=== PATIENT | female | born 1970 | race Caucasian/White ===

== ENCOUNTER 2021-06-22 15:40 | Emergency (ER) | payer OTHER, SELFPAY ==
[2021-06-22] VITALS (27 sets, daily range): BP systolic 112–130; BP diastolic 50–71; PULSE 58–79; RESP 13–26; TEMP 36.7; O2SAT 96–100
--- NOTE | 2021-06-22 15:45 | RT.EKG_ITS ---
APPROVED REPORT Exam: Resting ECG Reason for Exam: stomach pain, burning to chest Patient Location: E HR:61 bpm ECG Measurements Heart Rate 61 AXIS NM 129 P 46 QRSd 94 QRS 38 QT 449 T 53 QTc 452 Conclusion Sinus rhythm...normal P axis, V-rate 60- 99
--- NOTE | 2021-06-22 16:21 | W.ED.GENAD ---
Discharge Plan Disposition Patient Disposition: HOME Condition: Stable Discharge Details Clinical Impression: Abdominal pain, Midepigastric pain Primary Care Provider: Glenna,Local ED Provider: Ayde Chavez Home Meds and New Rx's Prescriptions: Continued citalopram 40 mg Tablet 40 mg PO DAILY RF: 0 levothyroxine 125 mcg Tablet 125 mcg PO DAILY RF: 0 Discharge Instructions Instructions: Abdominal Pain (ED) Additional Instructions: CT shoes mild thickening of the appendix, the general surgeon metal sprayer production was able to personally view the images and does not think there is any evidence for acute appendicitis at this time. Over the next 2 to 3 days clear liquids advance with bland diet as tolerated. Nothing fried, fatty, spicy, stay away from dairy. Please return to the emergency room for any worsening or increasing abdominal pain, fever, vomiting or any concerns. Please discussed the CT results with your primary care provider. Follow up with primary care provider in 3-5 days. Return to ED sooner if any worsening or concerns. Increase oral fluids. Consider taking Carafate or similar which she can obtain [id number] or taking Maalox. Medical Decision Making 50-year-old female with a past medical history of bilateral mastectomy, breast Ca, oophorectomy, cholecystectomy presents to the ER with chief complaint of midepigastric abdominal pain which radiates up into the chest, nausea which began at 3:00 this morning. She denies any vomiting or diarrhea. She reports last bowel movement was 2 days ago. Denies any hematochezia or hematemesis. Just recently drove up here from [place] on Wednesday. She has no pain on initial exam. She reports intermittent episodes. She took 2 Pepto-Bismol tabs prior to arrival. EKG was reviewed by Dr. José Vaca MD ER attending, please see his official report review, no old EKG available. Normal sinus rhythm. This time cardiac work-up ordered including serial troponins, CT chest abdomen pelvis. Rule out PE. Differential diagnosis includes but not limited to coronary artery disease, PE, GERD CBC shows no evidence for leukocytosis, absolute neutrophils slightly elevated at 7.15, CMP largely within normal limits initial troponin within normal limits lipase 108 which is normal, TSH slightly low free T4 within normal limits. 1743: Patient reevaluation. She denies have any other episode since being here, discussed lab results and pending CT result. Patient verbalized understanding. 1812: Spoke with [facility] radiologist who reports soft call of slightly thickened appendix at 8mm. 1821: Patient reevaluation, she is slightly tender in the right lower quadrant with palpation. She reports that she is having some return of the abdominal pain intermittently but nothing like the earlier severity of the attacks that brought her in today. On-call surgeon paged to have her look at the CT and give recommendations. I did discuss the preliminary CT results with patient and family who verbalized understanding. 1827: Spoke with Dr. Shannon who was able to personally view the images she did not appreciate any signs of sinusitis she reports that she is able to clearly see the appendix and it does not appear to be acute appendicitis. At this time I do feel it is safe for patient be discharged home. I will discuss strict return instructions, incidental findings including lung nodule with her and give her a copy of the CT results. Patient verbalized understanding all her questions were answered to the best my abilities. Insert dragon patient reports that she is set to go back to [place] tomorrow. HPI General Mode of arrival: ambulatory. Date/Time Provider Initiated Documentation: 06/22/21 16:07. Limitations to Documentation: no limitations. Information obtained by: patient, family and RN notes reviewed. HPI Narrative: 50-year-old female with a past medical history of bilateral mastectomy, breast Ca, oophorectomy, cholecystectomy presents to the ER with chief complaint of midepigastric abdominal pain which radiates up into the chest, nausea which began at 3:00 this morning. She denies any vomiting or diarrhea. She reports last bowel movement was 2 days ago. Denies any hematochezia or hematemesis. Just recently drove up here from [place] on Wednesday. She has no pain on initial exam. She reports intermittent episodes. She took 2 Pepto-Bismol tabs prior to arrival. Related Data Home Medications Medication Instructions Recorded Confirmed citalopram 40 mg PO DAILY 06/22/21 06/22/21 levothyroxine 125 mcg PO DAILY 06/22/21 06/22/21 Allergies Allergy/AdvReac Type Severity Reaction Status Date / Time cefazolin [From [facility]] Allergy Severe Anaphylaxis Unverified 06/22/21 16:02 General Stated Complaint: Chest Pain YANIRA: 2 Review of Systems All systems reviewed & are unremarkable except as noted in HPI and below Gastrointestinal Gastrointestinal: Reports abdominal pain, Denies hematochezia, Reports constipation, Reports cramping, Reports heartburn, Denies diarrhea, Reports nausea and Denies vomiting PFSH Social History Smoking/Tobacco Use Status: Never Smoking risk assessment performed?: Yes Substance use type: does not use Female Reproductive History Menstrual Menopause type: natural Exam Narrative Exam Narrative: Constitutional: Alert and oriented x3. Appears stated age. Normal body habitus. Head: Normocephalic, no trauma. Eyes: Pupils PERRLA, Red reflex noted, EOM's intact. Eyelids symmetrical without lesions, discharge, or swelling. ENT: Bilateral TM's WNL, External ear normal to inspection, no mastoid TTP, swelling, or erythema, Nasal turbinates WNL, no nasal discharge. Normal dentition, Posterior pharynx WNL, no exudate. Chest: RRR, Normal S1, S2, distal pulses intact. No pitting edema noted lower extremities. Resp: Lungs clear to auscultation bilaterally, no wheezes, rales, or rhonchi. Abdomen: Soft, nondistended nontender to palpation all 4 quadrants. Musculoskeletal: Normal gait, 5/5 strength to all four extremities. Skin: No suspicious rashes or lesions. Capillary refill less than 2 sec. Neurologic: Cranial nerves II-XII intact. Alert and oriented x 3. Hematologic/Lymphatic: No ecchymosis, no lymphadenopathy. Course Vital Signs Vital signs: Vital Signs Temperature 36.7 C 06/22/21 15:56 Pulse 70 06/22/21 15:56 Respiratory Rate 21 06/22/21 15:56 Blood Pressure 130/50 L 06/22/21 15:56 Pulse Oximetry 99 06/22/21 15:56 Temperature 36.7 C 06/22/21 15:56 Temperature Source Skin 06/22/21 15:56 Pulse 70 06/22/21 15:56 Respiratory Rate 19 06/22/21 16:12 Respiratory Effort 06/22/21 16:12 Respiratory Depth Normal 06/22/21 16:12 Respiratory Pattern Normal 06/22/21 16:12 Blood Pressure 130/50 L 06/22/21 15:56 Blood Pressure Position Supine 06/22/21 15:56 Pulse Oximetry 99 06/22/21 15:56 Oxygen Delivery Method Room Air 10/17/21 15:56 Oxygen Flow Rate 0 06/22/21 15:56 Pain Level 0 06/22/21 16:12 PAWSS Have you Been Recently Intoxicated or Drunk Within the Last 30 days?: No Have you Ever Experienced Previous Episodes of Alcohol Withdrawal?: No Have you ever Experienced Withdrawal Seizures?: No Have you ever Experienced Delirium Tremens(DT)s?: No Have you ever undergone Alcohol Rehabilitation Treatment (i.e, inpt ot outpatient treatment programs)?: No Have you ever Experienced Blackouts?: No Have you ever Combined Alcohol with other Downers within the last 90 days?: No Have you ever Combined Alcohol with any other Substance of Abuse during the last 90 days?: No Positive Blood Alcohol level on Presentation? [PCS.BAL]: No Evidence of Increased Autonomic Activity (i.e. HR>120, tremor, sweating, agitation, nausea)?: No Result: 0
--- NOTE | 2021-06-22 16:25 | DI.CT_ITS ---
Exam(s) CT CHEST PE ABD PELVIS W EXAM: CT CHEST PE ABD PELVIS W CLINICAL HISTORY: Chest Pain, R/O PE, Hx Breast CA,. TECHNIQUE: Imaging Protocol: Axial CT angiography was performed with multi-slice acquisition and m ulti-planar and/or 3D reconstructions. CONTRAST MATERIAL: Intravenous: Omnipaque 350 Contrast volume:100 ml Oral: None COMPARISON: No exams were available for comparison FINDINGS: CHEST: PULMONARY ARTERIES: There are no intra-arterial filling defects to suggest the presence of acute pulm onary emboli. LUNGS: There is no evidence of pulmonary infarction.There is a solitary noncalcified 4 millimeter sub pleural noncalcified nodule in the lateral basal segment of the left lower lobe (series 4, image 30). No other nodule seen. There are no pleural effusions. MEDIASTINUM: There is no hilar nor mediastinal adenopathy. Visualized thyroid unremarkable. CARDIAC: Heart size is normal. There is no pericardial effusion. There is no significant shift of t he interventricular septum.Caliber of the thoracic aorta is within normal limits. OSSEOUS: There is partially included sclerotic bone lesion evident in the upper left humerus.No lytic bone lesions. No fractures.. ABDOMEN: There is no ascites. LIVER: There are no focal hepatic lesions nor dilatation of intrahepatic ducts. GALLBLADDER/BILIARY: The gallbladder is surgically absent. CBD is not dilated. PANCREAS: No evidence of pancreatic mass nor dilatation of the pancreatic duct. SPLEEN: Spleen size upper normal. There is capsular calcification noted in the medial aspect of the spleen. No ominous splenic lesions. Splenic and portal veins are patent. ADRENALS: There are no significant adrenal masses. KIDNEYS:There is a 5 millimeters cyst in the lateral cortex of the right kidney. No calculi nor hydr onephrosis. Another cyst small-6 millimeter benign cyst is noted in the right kidney 2 cm above the other cysts. There are no solid renal masses. Left kidney dromedary hump noted. ABDOMINAL AORTA: Abdominal aorta is intact. No aneurysm. No dissection. Aortic bifurcation is varghese nt. No stenosis at this level nor in the common and external iliac arteries. Both common femoral ar teries are patent. LYMPH NODES: There is no retroperitoneal or para-aortic adenopathy. ABDOMINAL WALL/GI: Anterior abdominal wall hernia mesh noted. No hernia at this time. No abnormal f luid collection. No bowel obstruction. PELVIS: LYMPH NODES: There is no intrapelvic nor inguinal adenopathy. GI: Appendix diameter is minimally prominent. There is no periappendiceal streaking. No calcified a ppendicolith seen. No evidence of sigmoid diverticulitis. URINARY BLADDER: No calculi nor masses evident REPRODUCTIVE: The uterus and adnexal regions appear unremarkable. OSSEOUS: No significant osseous lesions. Sacroiliac joints appear unremarkable. IMPRESSION: 1. No evidence of acute pulmonary emboli nor pulmonary infarction. Thoracic and abdominal aorta appe ar unremarkable. No dissection. Aortoiliac segments are patent. Also no aneurysmal dilatation at t hese levels. 2. No significant focal pulmonary findings and no pleural effusions. There is no intrathoracic adeno elda. 3. The gallbladder surgically absent. The biliary tree is not dilated. 4. Appendix diameter is minimally prominent measuring 7-8 millimeters. There is no periappendiceal s treaking. There is no calcified appendicolith. Correlation the clinical findings of appendicitis re commended. 5. There is a partially visualized sclerotic bone lesion in the proximal diaphysis of the left humeru s. Suggestive of a cartilaginous lesion. Recommend plain x-rays as the next step. This study 1st read by [facility]. RADIATION DOSE DELIVERED: 1,500.87mGy.cm Total DLP DATA REPOSITORY: All CT scans at this facility are submitted to the National Radiology Data Registry (NRDR) Dose Index Registry (DIR) with the [employer] (ACR). RADIATION OPTIMIZATION: All CT scans at this facility use at least one of these dose optimization te chniques: automated exposure control; mA and/or kV adjustment per patient size (includes targeted exa ms where dose is matched to clinical indication); or iterative reconstruction.
[2021-06-22 16:33] LABS: Abs Immature Grans 0.03 10^3/uL (0.0-0.06); Absolute Basophil Count 0.01 10^3/uL (0.0-0.2); Absolute Eosinophil Count 0.15 10^3/uL (0.0-0.7); Absolute Lymphocyte Count 1.01 10^3/uL (1.2-3.4); Absolute Monocyte Count 0.54 10^3/uL (0.1-0.8); Absolute Neutrophil Count 7.15 10^3/uL (1.2-6.7); Basophils % 0.1; Eosinophils % 1.7; HCT 43.6 % (36.0-46.0); HGB 14.2 g/dL (11.2-15.7); Immature Grans % 0.3; Lymphocytes % 11.4; MCH 29.6 pg (27.0-33.0); MCHC 32.6 % (32.0-36.0); MPV 10.8 fL (8.0-11.0); Monocytes % 6.1; Neutrophils % 80.4; Nucleated RBC 0 %; Platelet Count 248 10^3/uL (130-400); RBC 4.79 10^6/uL (3.93-5.22); RDW 12.8 % (11.7-14.6); RDW-SD 42.5 fL; WBC 8.89 10^3/uL (4.4-10.8)
[2021-06-22] MEDS: Aspirin 81 MG CHEW 324 MG CH (16:46)
[2021-06-22 16:51] LABS: ALT 38 U/L (14-59); AST 35 U/L (15-37); Alkaline Phosphatase 107 U/L (46-116); Anion Gap 7.9 mmol/L (3-11); BUN 17 mg/dL (7-18); Bilirubin, Total 0.8 mg/dL (0.2-1.0); CO2 30.1 mmol/L (21.0-32.0); CREATININE 0.9 mg/dL (0.55-1.02); Calcium 8.6 mg/dL (8.5-10.1); Chloride 105 mmol/L (98-107); Glucose 95 mg/dL (74-106); Magnesium 1.9 mg/dL (1.8-2.4); Potassium 3.8 mmol/L (3.5-5.1); Sodium 143 mmol/L (136-145); TSH (W/Ref FT4) 0.08 uIU/mL (0.36-3.74); Total Protein 7.3 g/dL (6.4-8.2)
[2021-06-22 17:01] LABS: Troponin I < 0.05 ng/mL (<0.06)
[2021-06-22 17:10] LABS: Lipase 108 U/L (73-393)
[2021-06-22] MEDS: Normal Saline Flush 10 ML SYR IVP (17:21)
[2021-06-22] MEDS: Omnipaque 350 MG/ML 100 ML BTL IJ (17:21)
[2021-06-22] MEDS: Normal Saline - Diluent 50 ML VIAL IV (17:21)
[2021-06-22] MEDS: Normal Saline 1,000 ML 250 ML IV (18:01)
--- NOTE | 2021-06-22 18:14 | DI.VRAD_ITS ---
PROCEDURE INFORMATION: Exam: CTA Chest With Contrast Exam date and time: 06/22/2021 5:06 PM Age: 50 years old Clinical indication: Other: Chest pain, R/O pe, HX breast CA, ; other: Abd cramping, nausea; Prior surgery; Surgery date: 6+ months; Surgery type: Double masectomy TECHNIQUE: Imaging protocol: Computed tomographic angiography of the chest with contrast. 3D rendering (Not supervised by radiologist): MIP and/or 3D reconstructed images were created by the technologist. Contrast material: OMNIPAQUE 350; Contrast volume: 100 ml; Contrast route: INTRAVENOUS (IV); COMPARISON: No relevant prior studies available. FINDINGS: Tubes, catheters and devices: Surgical clips in the bilateral axilla. Pulmonary arteries: Normal. No pulmonary emboli. Aorta: Minimal aortic calcifications. Lungs: Unremarkable. No consolidation. No masses. Pleural spaces: 5 mm subpleural nodule in the left lower lobe best seen on axial series 8, image 287. The Heart: Unremarkable. No cardiomegaly. No pericardial effusion. Lymph nodes: Unremarkable. No enlarged lymph nodes. Bones/joints: Partially visualized sclerotic lesion in the proximal shaft of the left humerus best seen axial series 4, image 1. Recommend correlation with conventional radiographs of the left shoulder and humerus. The portion that is seen has appearance suggestive of a cartilaginous lesion. Soft tissues: Postoperative changes in both breasts. IMPRESSION: 1. No acute findings in the chest 2. Partially visualized sclerotic lesion proximal shaft of the left humerus. Recommend correlation with conventional radiographs. 3. 5 mm indeterminate pulmonary nodule left lower lobe. For patients at low risk (minimal or absent history of smoking and of other known risk factors), no routine follow-up is indicated. For patients at high risk (history of smoking or of other known risk factors), consider optional CT Chest at 12 months. (Reference: Amado) References: Amado Hicks, et al. Guidelines for Management of Incidental Pulmonary Nodules Detected on CT Images: From the Fleischner Society 2017. Radiology. 2017;284(1):228-243. PROCEDURE INFORMATION: Exam: CT Angiography Abdomen With Contrast Exam date and time: 06/22/2021 5:06 PM Age: 50 years old Clinical indication: Other: Chest pain, R/O pe, HX breast CA, ; other: Abd cramping, nausea; Prior surgery; Surgery date: 6+ months; Surgery type: Double masectomy TECHNIQUE: Imaging protocol: Computed tomographic angiography images of the abdomen with intravenous contrast material. 3D rendering (Not supervised by radiologist): MIP and/or 3D reconstructed images were created by the technologist. Contrast material: OMNIPAQUE 350; Contrast volume: 100 ml; Contrast route: INTRAVENOUS (IV); COMPARISON: No relevant prior studies available. FINDINGS: Aorta: No aortic aneurysm. No aortic dissection. Celiac trunk and mesenteric arteries: No occlusion or significant stenosis. Renal arteries: No occlusion or significant stenosis. Liver: Benign-appearing calcification along the posteromedial right hepatic lobe. Gallbladder and bile ducts: Cholecystectomy. Pancreas: Normal. No ductal dilation. Spleen: Benign appearing calcification adjacent to the posterior upper spleen. Adrenals: Normal. No mass. Kidneys and ureters: Tiny benign cysts right kidney. Stomach and bowel: Redundant loops of sigmoid colon in the left lower quadrant. Appendix: Mild thickening of the appendix measuring 8 mm in greatest dimension with slight thickening and enhancement of the wall of the appendix. No appreciable periappendiceal soft tissue stranding. Findings could be due to low-grade appendicitis. Lymph nodes: Unremarkable. No enlarged lymph nodes. Intraperitoneal space: Unremarkable. No free air. No significant fluid collection. Bones/joints: Unremarkable. No acute fracture. No dislocation. Soft tissues: Postoperative changes anterior abdominal wall. IMPRESSION: 1. Possible low-grade appendicitis. The appendix measures approximately 8 mm in diameter and has a slightly thickened wall but there is no appreciable periappendiceal soft tissue stranding 2. Other incidental findings as described THIS REPORT CONTAINS FINDINGS THAT MAY BE CRITICAL TO PATIENT CARE. The findings were verbally communicated via telephone conference with ТАТЬЯНА STANLEY at 6:13 PM EDT on 06/22/2021. The findings were acknowledged and understood. Dictated and Authenticated by: Barby Lopez MD. Ordering:PASCUAL Messer MD
== END 2021-06-22 18:48 | disposition home or self-care (01) ==
PROVIDERS: Emergency Provider Registered Nurse Emergency
DX: R10.13 Epigastric pain (principal); R11.0 Nausea; R07.89 Other chest pain
CPT/HCPCS: 71275; 74177; 80053; 83690; 93005; 96360; 99285; 83735; 84439; 84443; 84484; 85025; 93010; 99284; J3490

== ENCOUNTER 2021-06-22 21:45 | Emergency (ER) | payer OTHER, SELFPAY ==
[2021-06-22] VITALS (22 sets, daily range): BP systolic 102–125; BP diastolic 53–96; PULSE 57–75; RESP 12–28; TEMP 36.5; O2SAT 92–99
--- NOTE | 2021-06-22 21:30 | RT.EKG_ITS ---
APPROVED REPORT Exam: Resting ECG Reason for Exam: chst pain Patient Location: E HR:57 bpm ECG Measurements Heart Rate 57 AXIS FL 130 P 25 QRSd 98 QRS 40 QT 449 T 51 QTc 438 Conclusion Sinus bradycardia...rate< 60. Sinus. No STEMI. I have reviewed and interpreted ECG and agree with software generated interpretation.
--- NOTE | 2021-06-22 21:58 | ED.GENADUL_ITS ---
Discharge Plan Disposition Patient Disposition: HOME Condition: Stable Discharge Details Clinical Impression: Midepigastric pain Primary Care Provider: GlennaLocal ED Provider: Ayde Chavez Home Meds and New Rx's Prescriptions: No Action citalopram 40 mg Tablet 40 mg PO DAILY RF: 0 levothyroxine 125 mcg Tablet 125 mcg PO DAILY RF: 0 Discharge Instructions Instructions: Acute Nausea and Vomiting (ED), Abdominal Pain (ED) Additional Instructions: At this time there does not seem to be any emergent condition causing your symptoms. It is possible that you have a peptic ulcer causing the abdominal pain and vomiting. However, we cannot see that on the CT exam. It is possible that you need either an endoscopy or colonoscopy to rule this out. This can be arranged as an outpatient. Please take the nausea medications and the Carafate as directed. Follow up with primary care provider in 3-5 days. Increase oral fluids. This time EKG and troponins are negative which are cardiac enzymes that would be elevated if there is any damage to the heart. Labs are largely within normal limits. No evidence of infection. Medical Decision Making 50-year-old female for the second time tonight for midepigastric abdominal burning and vomiting. Patient was seen by myself earlier for similar symptoms. Had cardiac work-up CT chest abdomen pelvis. Patient reports that she went home had an episode of nausea vomiting and an additional onset of abdominal pain that was burning and constant. Patient was given a GI cocktail prior to her discharge. On arrival here she was given Tylenol by EMS, 1 L normal saline, Zofran IV and Carafate. Additional screening labs ordered including CBC, CMP troponin and EKG which are largely unchanged and/or improved. Of note however AST is slightly elevated at 96 ALT 87 which could be due to vomiting. Patient has a past medical history of breast cancer with bilateral mastectomy, cholecystectomy, bilateral oophorectomy and is postmenopausal. She is a non- smoker denies any drugs or alcohol. 2308: Patient reevaluation, patient has received Zofran and Carafate. She reports the pain has down however she still rates it a 2 out of 10. We will give Pepcid 20 mg IV 2 mg of Valium as needed nausea and planned discharge with Zofran and follow-up with PCP. I did discuss lab results with patient and family. All her questions were answered to the best my ability, follow-up was discussed at length. Patient feels better after the Pepcid and Valium. Patient remained hemodynamically stable throughout stay. This text was generated using [employer] dictation system, please disregard any oddities of phrase or misspellings. HPI General Mode of arrival: EMS . Date/Time Provider Initiated Documentation: 06/22/21 21:48 . Limitations to Documentation: no limitations . Information obtained by: patient, RN notes reviewed and old records reviewed . HPI Narrative: 50-year-old female for the second time tonight for midepigastric abdominal burning and vomiting. Patient was seen by myself earlier for similar symptoms. Had cardiac work-up CT chest abdomen pelvis. Patient reports that she went home had an episode of nausea vomiting and an additional onset of abdominal pain that was burning and constant. Patient was given a GI cocktail prior to her discharge. On arrival here she was given Tylenol by EMS, 1 L normal saline, Zofran IV and Carafate. Additional screening labs ordered including CBC, CMP troponin and EKG which are largely unchanged and/or improved. Of note however AST is slightly elevated at 96 ALT 87 which could be due to vomiting. Patient has a past medical history of breast cancer with bilateral mastectomy, cholecystectomy, bilateral oophorectomy and is postmenopausal. She is a non-smoker denies any drugs or alcohol. Related Data Home Medications Medication Instructions Recorded Confirmed citalopram 40 mg PO DAILY 06/22/21 06/22/21 levothyroxine 125 mcg PO DAILY 06/22/21 06/22/21 Allergies Allergy/AdvReac Type Severity Reaction Status Date / Time cefazolin [From [facility]] Allergy Severe Anaphylaxis Unverified 06/22/21 21:50 General Stated Complaint: Abd Prob YANIRA: 3 Review of Systems All systems reviewed & are unremarkable except as noted in HPI and below PFSH Social History Smoking/Tobacco Use Status: Never Smoking risk assessment performed?: Yes Alcohol Intake: current Alcohol Intake frequency: holidays/special occasions only Drug use: Never Substance use type: does not use Do you feel safe at home: Yes Do you feel safe in your relationship?: Yes Female Reproductive History Menstrual Menopause type: natural Exam Narrative Exam Narrative: Constitutional: Alert and oriented x3. Appears stated age. Normal body habitus. Head: Normocephalic, no trauma. Eyes: Pupils PERRLA, Red reflex noted, EOM's intact. Eyelids symmetrical without lesions, discharge, or swelling. ENT: Bilateral TM's WNL, External ear normal to inspection, no mastoid TTP, swelling, or erythema, Nasal turbinates WNL, no nasal discharge. Normal dentition, Posterior pharynx WNL, no exudate. Chest: RRR, Normal S1, S2, distal pulses intact. Resp: Lungs clear to auscultation bilaterally, no wheezes, rales, or rhonchi. Abdomen: Soft, nondistended right upper quadrant tenderness with palpation. Musculoskeletal: Normal gait, 5/5 strength to all four extremities. Skin: No suspicious rashes or lesions. Capillary refill less than 2 sec. Neurologic: Cranial nerves II-XII intact. Alert and oriented x 3. DTR's intact. Hematologic/Lymphatic: No ecchymosis, no lymphadenopathy. Course Vital Signs Vital signs: Vital Signs Temperature 36.5 C 06/22/21 21:43 Pulse 71 06/22/21 21:43 Respiratory Rate 16 06/22/21 21:43 Blood Pressure 105/68 06/22/21 21:43 Pulse Oximetry 97 06/22/21 21:43 Temperature 36.5 C 06/22/21 21:43 Temperature Source Temporal Artery Scan 06/22/21 21:43 Pulse 71 06/22/21 21:43 Respiratory Rate 16 06/22/21 21:43 Respiratory Effort 06/22/21 21:50 Blood Pressure 105/68 06/22/21 21:43 Pulse Oximetry 97 06/22/21 21:43 Pain Level 5 06/22/21 21:43 Comment 06/22/21 21:43
[2021-06-22] MEDS: Normal Saline 1,000 ML 1000 ML IV (22:07)
[2021-06-22] MEDS: Ondansetron 4 MG/2 ML VIAL IVP (22:08)
[2021-06-22 22:13] LABS: Abs Immature Grans 0.01 10^3/uL (0.0-0.06); Absolute Basophil Count 0.02 10^3/uL (0.0-0.2); Absolute Eosinophil Count 0.12 10^3/uL (0.0-0.7); Absolute Lymphocyte Count 1.08 10^3/uL (1.2-3.4); Absolute Monocyte Count 0.49 10^3/uL (0.1-0.8); Absolute Neutrophil Count 6.48 10^3/uL (1.2-6.7); Basophils % 0.2; Eosinophils % 1.5; HCT 39.4 % (36.0-46.0); HGB 12.9 g/dL (11.2-15.7); Immature Grans % 0.1; Lymphocytes % 13.2; MCH 29.1 pg (27.0-33.0); MCHC 32.7 % (32.0-36.0); MCV 88.9 fL (80-95); MPV 10.5 fL (8.0-11.0); Nucleated RBC 0 %; Platelet Count 211 10^3/uL (130-400); RBC 4.43 10^6/uL (3.93-5.22); RDW 12.8 % (11.7-14.6); RDW-SD 42.5 fL
[2021-06-22 22:28] LABS: ALT 87 U/L (14-59); AST 96 U/L (15-37); Albumin 3.6 g/dL (3.4-5.0); Alkaline Phosphatase 111 U/L (46-116); Anion Gap 7.9 mmol/L (3-11); BUN 14 mg/dL (7-18); Bilirubin, Total 0.7 mg/dL (0.2-1.0); CO2 30.1 mmol/L (21.0-32.0); CREATININE 0.9 mg/dL (0.55-1.02); Calcium 8.3 mg/dL (8.5-10.1); Chloride 105 mmol/L (98-107); Glucose 94 mg/dL (74-106); Potassium 3.6 mmol/L (3.5-5.1); Sodium 143 mmol/L (136-145); Total Protein 6.8 g/dL (6.4-8.2)
[2021-06-22 22:29] LABS: Troponin I < 0.05 ng/mL (<0.06)
[2021-06-22] MEDS: Sucralfate 1 GM TAB PO (22:52)
[2021-06-22] MEDS: diazePAM 2 MG TAB PO (23:20)
[2021-06-22] MEDS: FAMOTIDINE 20 MG/50 ML BAG 200 MG IVPB (23:20)
[2021-06-23] VITALS: PULSE 61; RESP 17; O2SAT 93
[2021-06-23 00:01] VITALS: BP 101/58; PULSE 59; PULSE 66; RESP 19; O2SAT 94
[2021-06-23] MEDS: Sucralfate 1 GM TAB PO (00:11)
[2021-06-23] MEDS: Ondansetron O.D.T. 4 MG TABEF, 3 TABS/BTL PO (00:11)
== END 2021-06-23 00:13 | disposition home or self-care (01) ==
PROVIDERS: Emergency Provider Registered Nurse Emergency
DX: R10.13 Epigastric pain (principal); R11.2 Nausea with vomiting, unspecified
CPT/HCPCS: 80053; 93005; 96361; 96365; 96375; 99284; 84484; 85025; 93010; 99283; J2405